=== PATIENT | female | born 1990 | race Caucasian/White ===

== ENCOUNTER 2021-02-17 13:04 | Inpatient (IN) | payer BC ==
[2021-02-17] MEDS ORDERED: Ondansetron 4 MG/2 ML SDV IVPUSH PRN (15:41)
[2021-02-17] MEDS ORDERED: Lactated Ringers 1,000 ML IV SCH (15:45)
[2021-02-17] MEDS ORDERED: Oxytocin/0.9 % Sodium Chloride 30 UNIT/500 ML BAG IV SCH (16:00)
[2021-02-17] MEDS ORDERED: Sodium Chloride 0.9% 10 ML SDV IV PRN (16:16)
[2021-02-17] MEDS ORDERED: Carboprost Tromethamine 250 MCG/1 ML Amp IM PRN (16:16)
[2021-02-17] MEDS ORDERED: Water For Irrigation,Sterile 1,000 ML Container IRR PRN (16:16)
[2021-02-17] MEDS ORDERED: Sodium Chloride 0.9% 2.5 ML Syringe FLUSH PRN (16:16)
[2021-02-17] MEDS ORDERED: Sodium Chloride 0.9% 10 ML Syringe FLUSH PRN (16:16)
[2021-02-17] MEDS ORDERED: Lidocaine 1% 50 ML MDV INJECT PRN (16:16)
[2021-02-17] MEDS ORDERED: Tranexamic Acid 1,000 MG in Sodium Chloride 0.9% 100 ML IV PRN (16:16)
[2021-02-17] MEDS ORDERED: Nalbuphine 10 MG/1 ML Vial IVPUSH PRN (16:16)
[2021-02-17] MEDS ORDERED: Misoprostol 200 MCG Tab PO PRN (16:16)
[2021-02-17] MEDS ORDERED: Butorphanol 1 MG/ML SDV IVPUSH PRN (16:16)
[2021-02-17] MEDS ORDERED: Methylergonovine 0.2 MG/1 ML Amp IM PRN (16:16)
[2021-02-17] MEDS ORDERED: Oxytocin 10 Units/1 ML SDV ONE (19:55)
[2021-02-17] MEDS ORDERED: Docusate Sodium 100 MG Cap PO PRN (20:27)
[2021-02-17] MEDS ORDERED: Ibuprofen 800 MG Tab PO PRN (20:27)
[2021-02-17] MEDS ORDERED: Acetaminophen 500 MG Tab PO PRN ×2 (20:27)
[2021-02-17] MEDS ORDERED: Ibuprofen 400 MG Tab PO PRN (20:27)
[2021-02-17] MEDS ORDERED: oxyCODONE 5 MG Tab PO PRN (20:27)
[2021-02-17] MEDS ORDERED: Witch Hazel Medicated Pads 40/Jar TOP PRN (20:27)
[2021-02-17] MEDS ORDERED: Lanolin 100% Cream 7 GM Tube TOP PRN (20:27)
[2021-02-17] MEDS ORDERED: Benzocaine/Menthol 20%-0.5% Spray 78 GM Cannister TOP PRN (20:27)
[2021-02-17] MEDS ORDERED: Bisacodyl 10 MG Supp RECTAL PRN (20:27)
--- NOTE | 2021-02-17 20:37 | PCM.DEL ---
L & D Note - General Info Date of Service: 02/17/21 Mother's Due Date: 02/12/21 - Delivery Note Labor: Augmented by Oxytocin Cervical Ripening Method: Oxytocin Delivery Outcome: Livebirth Delivery Method: Spontaneous Vaginal Delivery-Single Presentation: Right Occiput Anterior (NAYELI) Nuchal Cord: Present (x1, tight and delivered through) Anesthesia Type: None Amniotic Fluid Description: Clear Episiotomy Type: None Laceration: None Placenta: Intact, Spontaneous Cord: 3 Vessels Estimated Blood Loss: 150 Resuscitation Needed: No : Bulb Syringe, Stimulated Score 1 min: 8 Score 5 min: 9 Delivery Comments (Free Text/Narrative):: Dictation number [id number] - General Info Date of Service: 02/17/21 - Patient Data Weight - Most Recent: 168 lb Lab Results Last 24 Hours: Laboratory Results - last 24 hr 02/17/21 02/17/21 02/17/21 Range/Units 15:00 16:25 16:40 WBC 8.81 (4.0-11.0) K/uL RBC 4.28 L (4.30-5.90) M/uL Hgb 11.9 L (12.0-16.0) g/dL Hct 36.0 (36.0-46.0) % MCV 84.1 (80.0-98.0) fL MCH 27.8 (27.0-32.0) pg MCHC 33.1 (31.0-37.0) g/dL RDW Std Deviation 40.5 (28.0-62.0) fl RDW Coeff of Keo 14 (11.0-15.0) % Plt Count 168 (150-400) K/uL MPV 12.10 H (7.40-12.00) fL Nucleated RBC % 0.0 /100WBC Nucleated RBCs # 0 K/uL Urine Color YELLOW Urine Appearance CLEAR Urine pH 6.0 (5.0-8.0) Ur Specific [place] 1.015 (1.001-1.035) Urine Protein NEGATIVE (NEGATIVE) mg/dL Urine Glucose (UA) NEGATIVE (NEGATIVE) mg/dL Urine Ketones 15 H (NEGATIVE) mg/dL Urine Occult Blood NEGATIVE (NEGATIVE) Urine Nitrite NEGATIVE (NEGATIVE) Urine Bilirubin NEGATIVE (NEGATIVE) Urine Urobilinogen 0.2 (<2.0) EU/dL Ur Leukocyte Esterase TRACE H (NEGATIVE) Urine RBC 0-1 (0-2/HPF) Urine WBC 0-2 (0-5/HPF) Ur Epithelial Cells FEW (NONE-FEW) Urine Bacteria FEW (NEGATIVE) SARS-CoV-2 RNA (JENNIFER) (NEGATIVE) Blood Type A POSITIVE Antibody Screen NEGATIVE 02/17/21 Range/Units 16:50 WBC (4.0-11.0) K/uL RBC (4.30-5.90) M/uL Hgb (12.0-16.0) g/dL Hct (36.0-46.0) % MCV (80.0-98.0) fL MCH (27.0-32.0) pg MCHC (31.0-37.0) g/dL RDW Std Deviation (28.0-62.0) fl RDW Coeff of Keo (11.0-15.0) % Plt Count (150-400) K/uL MPV (7.40-12.00) fL Nucleated RBC % /100WBC Nucleated RBCs # K/uL Urine Color Urine Appearance Urine pH (5.0-8.0) Ur Specific [place] (1.001-1.035) Urine Protein (NEGATIVE) mg/dL Urine Glucose (UA) (NEGATIVE) mg/dL Urine Ketones (NEGATIVE) mg/dL Urine Occult Blood (NEGATIVE) Urine Nitrite (NEGATIVE) Urine Bilirubin (NEGATIVE) Urine Urobilinogen (<2.0) EU/dL Ur Leukocyte Esterase (NEGATIVE) Urine RBC (0-2/HPF) Urine WBC (0-5/HPF) Ur Epithelial Cells (NONE-FEW) Urine Bacteria (NEGATIVE) SARS-CoV-2 RNA (JENNIFER) NEGATIVE (NEGATIVE) Blood Type Antibody Screen Med Orders - Current: Current Medications Acetaminophen (Acetaminophen 500 Mg Tab) 500 mg PO Q4H PRN PRN Reason: Pain Acetaminophen (Acetaminophen 500 Mg Tab) 1,000 mg PO Q4H PRN PRN Reason: Pain Benzocaine/Menthol (Benzocaine/Menthol 20%-0.5% [place] 78 Gm Cannister) 78 gm TOP ASDIRECTED PRN PRN Reason: Perineal Comfort Measure Bisacodyl (Bisacodyl 10 Mg Supp) 10 mg RECTAL ONETIME PRN PRN Reason: Constipation Butorphanol Tartrate (Butorphanol 1 Mg/Ml Sdv) 1 mg IVPUSH Q1H PRN PRN Reason: Pain Carboprost Tromethamine (Carboprost Tromethamine 250 Mcg/1 Ml Amp) 250 mcg IM ASDIRECTED PRN PRN Reason: Post Hemorrhage Docusate Sodium (Docusate Sodium 100 Mg Cap) 100 mg PO BID PRN PRN Reason: Constipation Emollient Ointment (Lanolin 100% Cream 7 Gm Tube) 0 gm TOP ASDIRECTED PRN PRN Reason: Sore Nipples Lactated Ringer's (Ringers, Lactated) 1,000 mls @ 150 mls/hr IV ASDIRECTED [facility] Last Admin: 02/17/21 17:24 Dose: 150 mls/hr Documented by: Oxytocin/Sodium Chloride (Oxytocin 30 Unit/500 Ml-Ns) 30 unit in 500 mls @ 2 mls/hr IV TITRATE [facility]; Protocol Last Admin: 02/17/21 17:24 Dose: 2 munits/min, 2 mls/hr Documented by: Tranexamic Acid 1,000 mg/ (Sodium Chloride) 110 mls @ 660 mls/hr IV ONETIME PRN PRN Reason: Bleeding Ibuprofen (Ibuprofen 400 Mg Tab) 400 mg PO Q4H PRN PRN Reason: Pain Ibuprofen (Ibuprofen 800 Mg Tab) 800 mg PO Q6H PRN PRN Reason: Pain Lidocaine HCl (Lidocaine 1% 50 Ml Mdv) 50 ml INJECT ONETIME PRN PRN Reason: Laceration repair Methylergonovine Maleate (Methylergonovine 0.2 Mg/1 Ml Amp) 0.2 mg IM ASDIRECTED PRN PRN Reason: Post Hemorrhage Misoprostol (Misoprostol 200 Mcg Tab) 200 mcg PO ONETIME PRN PRN Reason: Post Hemorrhage Nalbuphine HCl (Nalbuphine 10 Mg/1 Ml Vial) 10 mg IVPUSH Q1H PRN PRN Reason: Pain (severe 7-10) Ondansetron HCl (Ondansetron 4 Mg/2 Ml Sdv) 4 mg IVPUSH Q4H PRN PRN Reason: Nausea/Vomiting Oxycodone HCl (Oxycodone 5 Mg Tab) 5 mg PO Q2H PRN PRN Reason: Pain Sodium Chloride (Sodium Chloride 0.9% 10 Ml Syringe) 10 ml FLUSH ASDIRECTED PRN PRN Reason: Keep Vein Open Sodium Chloride (Sodium Chloride 0.9% 2.5 Ml Syringe) 2.5 ml FLUSH ASDIRECTED PRN PRN Reason: Keep Vein Open Sodium Chloride (Sodium Chloride 0.9% 10 Ml Sdv) 10 ml IV ASDIRECTED PRN PRN Reason: IV Use Sterile Water (Water For Irrigation,Sterile 1,000 Ml Container) 1,000 ml IRR ASDIRECTED PRN PRN Reason: delivery Witch Pam (Witch Pam Medicated Pads 40/Jar) 1 pad TOP ASDIRECTED PRN PRN Reason: comfort care - Problem List Review Problem List Initiated/Reviewed/Updated: Yes - My Orders Last 24 Hours: My Active Orders 02/17/21 20:27 Patient Status [ADT] Routine May Shower [RC] ASDIRECTED Up ad [place] [RC] ASDIRECTED Vital Signs [RC] PER UNIT ROUTINE Acetaminophen [Tylenol Extra Strength] 1,000 mg PO Q4H PRN Acetaminophen [Tylenol Extra Strength] 500 mg PO Q4H PRN Benzocaine/Menthol [Dermoplast Pain Relief 20%-0.5% [place]] 78 gm TOP ASDIRECTED PRN Docusate Sodium [Colace] 100 mg PO BID PRN Ibuprofen [Motrin] 400 mg PO Q4H PRN Ibuprofen [Motrin] 800 mg PO Q6H PRN Lanolin [Lansinoh HPA] See Dose Instructions TOP ASDIRECTED PRN bisacodyL [Dulcolax] 10 mg RECTAL ONETIME PRN oxyCODONE 5 mg PO Q2H PRN witch Pam [Tucks] 1 pad TOP ASDIRECTED PRN Assess Lochia [WOMSER] Per Unit Routine Assess Uterine Involution [WOMSER] Per Unit Routine Peripheral IV Discontinue [OM.PC] Routine 02/18/21 05:11 HEMOGLOBIN/HEMATOCRIT,HH [HEME] Timed - Assessment Assessment:: 30 year old G4 now P4 s/p spontaneous vaginal delivery - Plan Plan:: Routine cares * Rh positive, rubella immune, GBS negative * Encourage ambulation and fluid intake * PO pain medication available PRN * Regular diet as tolerated * , nursing assistance as indicated Classic Hodgkins lymphoma * Recent diagnosis, oncology appointment next week Dispo: stable. Admit patient and infant to room.
--- NOTE | 2021-02-18 03:08 | OR ---
SURGEON: CHERYL BENNETT MD DATE OF PROCEDURE: 02/17/2021 PREOPERATIVE DIAGNOSES: 1. [place] intrauterine at 40 weeks and 1 day. 2. Classic Hodgkin lymphoma. POSTOPERATIVE DIAGNOSES: 1. [place] intrauterine at 40 weeks and 1 day. 2. Classic Hodgkin lymphoma. PROCEDURE PERFORMED: Normal spontaneous vaginal delivery. PRIMARY SURGEON: Cheryl Bennett MD FINDINGS: Normal-appearing viable female infant. score of 8 and 9. weight of 8 pounds 11 ounces. ESTIMATED BLOOD LOSS: 150. INDICATION FOR PROCEDURE: The patient is a 30-year-old, 4, para 3, at 40 weeks and 5 days who presented to Labor and Delivery with irregular contractions in the afternoon of 02/17/2021. Due to post-dates and living remote from facility, labor was augmented with Pitocin. Labor progressed uneventfully. At approximately 7:50, I was notified that the patient was 8 cm dilated and felt the urge to push. DESCRIPTION OF THE PROCEDURE: Upon my arrival to the patient's room, she was noted to be 9 cm dilated and amniotic sac was intact. After review of risks, artificial rupture of membranes with me was performed and moderate amount of clear fluid was noted. Shortly thereafter, the patient initiated pushing efforts and head delivered in occiput anterior position, restituted in ROT, tight nuchal cord was noted, and delivery continued. Anterior shoulder delivered easily, followed by the posterior shoulder and remainder of the body. The baby was then placed on maternal chest and evaluated by the awaiting nursing staff. The umbilical cord was then clamped and cut after 60 seconds and no longer pulsating. Arterial, venous, and cord blood gases were then obtained. The placenta then delivered spontaneously shortly thereafter, intact. The vagina and perineum were then examined, and no lacerations were noted. Hemostasis was confirmed. Uterine fundus was firm and located below the umbilicus upon fundal massage. She tolerated the procedure well and was given care instructions. JACQUELYN / EDUAR /[id number]
--- NOTE | 2021-02-18 08:49 | PCM.PNPP ---
- General Info Date of Service: 02/18/21 Subjective Update: Resting in bed with during rounds. Ambulating and voiding without difficulty. Pain well controlled with PO medications. Tolerating regular diet. Lochia decreasing. Breast feeding going well. - General Info Date of Service: 02/18/21 - Patient Data Vital Signs - Most Recent: Last Vital Signs Temp 97.9 F 02/18/21 04:58 Pulse 72 02/18/21 04:58 Resp 16 02/18/21 00:00 BP 96/58 L 02/18/21 04:58 Pulse Ox Weight - Most Recent: 168 lb Lab Results - Last 24 Hours: Laboratory Results - last 24 hr 02/17/21 02/17/21 02/17/21 Range/Units 15:00 16:25 16:40 WBC 8.81 (4.0-11.0) K/uL RBC 4.28 L (4.30-5.90) M/uL Hgb 11.9 L (12.0-16.0) g/dL Hct 36.0 (36.0-46.0) % MCV 84.1 (80.0-98.0) fL MCH 27.8 (27.0-32.0) pg MCHC 33.1 (31.0-37.0) g/dL RDW Std Deviation 40.5 (28.0-62.0) fl RDW Coeff of Keo 14 (11.0-15.0) % Plt Count 168 (150-400) K/uL MPV 12.10 H (7.40-12.00) fL Nucleated RBC % 0.0 /100WBC Nucleated RBCs # 0 K/uL Cord ABG pH (7.18-7.38) Cord ABG Base Excess (-10--2) Cord VBG pH (7.25-7.45) Cord VBG Base Excess (-10--2) Urine Color YELLOW Urine Appearance CLEAR Urine pH 6.0 (5.0-8.0) Ur Specific [place] 1.015 (1.001-1.035) Urine Protein NEGATIVE (NEGATIVE) mg/dL Urine Glucose (UA) NEGATIVE (NEGATIVE) mg/dL Urine Ketones 15 H (NEGATIVE) mg/dL Urine Occult Blood NEGATIVE (NEGATIVE) Urine Nitrite NEGATIVE (NEGATIVE) Urine Bilirubin NEGATIVE (NEGATIVE) Urine Urobilinogen 0.2 (<2.0) EU/dL Ur Leukocyte Esterase TRACE H (NEGATIVE) Urine RBC 0-1 (0-2/HPF) Urine WBC 0-2 (0-5/HPF) Ur Epithelial Cells FEW (NONE-FEW) Urine Bacteria FEW (NEGATIVE) SARS-CoV-2 RNA (JENNIFER) (NEGATIVE) Blood Type A POSITIVE Antibody Screen NEGATIVE 02/17/21 02/17/21 02/18/21 Range/Units 16:50 20:10 06:15 WBC (4.0-11.0) K/uL RBC (4.30-5.90) M/uL Hgb 12.0 (12.0-16.0) g/dL Hct 36.5 (36.0-46.0) % MCV (80.0-98.0) fL MCH (27.0-32.0) pg MCHC (31.0-37.0) g/dL RDW Std Deviation (28.0-62.0) fl RDW Coeff of Keo (11.0-15.0) % Plt Count (150-400) K/uL MPV (7.40-12.00) fL Nucleated RBC % /100WBC Nucleated RBCs # K/uL Cord ABG pH 7.322 (7.18-7.38) Cord ABG Base Excess -6 (-10--2) Cord VBG pH 7.341 (7.25-7.45) Cord VBG Base Excess -5 (-10--2) Urine Color Urine Appearance Urine pH (5.0-8.0) Ur Specific [place] (1.001-1.035) Urine Protein (NEGATIVE) mg/dL Urine Glucose (UA) (NEGATIVE) mg/dL Urine Ketones (NEGATIVE) mg/dL Urine Occult Blood (NEGATIVE) Urine Nitrite (NEGATIVE) Urine Bilirubin (NEGATIVE) Urine Urobilinogen (<2.0) EU/dL Ur Leukocyte Esterase (NEGATIVE) Urine RBC (0-2/HPF) Urine WBC (0-5/HPF) Ur Epithelial Cells (NONE-FEW) Urine Bacteria (NEGATIVE) SARS-CoV-2 RNA (JENNIFER) NEGATIVE (NEGATIVE) Blood Type Antibody Screen Med Orders - Current: Current Medications Acetaminophen (Acetaminophen 500 Mg Tab) 500 mg PO Q4H PRN PRN Reason: Pain Acetaminophen (Acetaminophen 500 Mg Tab) 1,000 mg PO Q4H PRN PRN Reason: Pain Benzocaine/Menthol (Benzocaine/Menthol 20%-0.5% [place] 78 Gm Cannister) 78 gm TOP ASDIRECTED PRN PRN Reason: Perineal Comfort Measure Bisacodyl (Bisacodyl 10 Mg Supp) 10 mg RECTAL ONETIME PRN PRN Reason: Constipation Butorphanol Tartrate (Butorphanol 1 Mg/Ml Sdv) 1 mg IVPUSH Q1H PRN PRN Reason: Pain Carboprost Tromethamine (Carboprost Tromethamine 250 Mcg/1 Ml Amp) 250 mcg IM ASDIRECTED PRN PRN Reason: Post Hemorrhage Docusate Sodium (Docusate Sodium 100 Mg Cap) 100 mg PO BID PRN PRN Reason: Constipation Emollient Ointment (Lanolin 100% Cream 7 Gm Tube) 0 gm TOP ASDIRECTED PRN PRN Reason: Sore Nipples Lactated Ringer's (Ringers, Lactated) 1,000 mls @ 150 mls/hr IV ASDIRECTED COUNT [facility]CLUDES [facility] Last Admin: 02/17/21 17:24 Dose: 150 mls/hr Documented by: Oxytocin/Sodium Chloride (Oxytocin 30 Unit/500 Ml-Ns) 30 unit in 500 mls @ 2 mls/hr IV TITRATE COUNT INCLUDES [facility]; Protocol Last Admin: 02/17/21 17:24 Dose: 2 munits/min, 2 mls/hr Documented by: Tranexamic Acid 1,000 mg/ (Sodium Chloride) 110 mls @ 660 mls/hr IV ONETIME PRN PRN Reason: Bleeding Ibuprofen (Ibuprofen 400 Mg Tab) 400 mg PO Q4H PRN PRN Reason: Pain Ibuprofen (Ibuprofen 800 Mg Tab) 800 mg PO Q6H PRN PRN Reason: Pain Lidocaine HCl (Lidocaine 1% 50 Ml Mdv) 50 ml INJECT ONETIME PRN PRN Reason: Laceration repair Methylergonovine Maleate (Methylergonovine 0.2 Mg/1 Ml Amp) 0.2 mg IM ASDIRECTED PRN PRN Reason: Post Hemorrhage Misoprostol (Misoprostol 200 Mcg Tab) 200 mcg PO ONETIME PRN PRN Reason: Post Hemorrhage Nalbuphine HCl (Nalbuphine 10 Mg/1 Ml Vial) 10 mg IVPUSH Q1H PRN PRN Reason: Pain (severe 7-10) Ondansetron HCl (Ondansetron 4 Mg/2 Ml Sdv) 4 mg IVPUSH Q4H PRN PRN Reason: Nausea/Vomiting Oxycodone HCl (Oxycodone 5 Mg Tab) 5 mg PO Q2H PRN PRN Reason: Pain Sodium Chloride (Sodium Chloride 0.9% 10 Ml Syringe) 10 ml FLUSH ASDIRECTED PRN PRN Reason: Keep Vein Open Sodium Chloride (Sodium Chloride 0.9% 2.5 Ml Syringe) 2.5 ml FLUSH ASDIRECTED PRN PRN Reason: Keep Vein Open Sodium Chloride (Sodium Chloride 0.9% 10 Ml Sdv) 10 ml IV ASDIRECTED PRN PRN Reason: IV Use Sterile Water (Water For Irrigation,Sterile 1,000 Ml Container) 1,000 ml IRR ASDIRECTED PRN PRN Reason: delivery Witch Pam (Witch Pam Medicated Pads 40/Jar) 1 pad TOP ASDIRECTED PRN PRN Reason: comfort care Discontinued Medications Oxytocin (Oxytocin 10 Units/1 Ml Sdv) Confirm Administered Dose 10 unit .ROUTE .[employer]-AMKAI ONE Stop: 02/17/21 19:56 - Infant Interaction Disposition, : [place] in Room with Family Interaction: Holding Infant Feeding: Breastfed ; Nursed Well Support Person: - Recovery Exam Fundal Tone: Firm Fundal Level: 1 Fingerbreadths Below Umbilicus Fundal Placement: Midline Lochia Amount: Scant Lochia Color: Rubra/Red Perineum Description: Intact, Minimal Bruising/Swelling Episiotomy/Laceration: None Bladder Status: Voiding Urinary Elimination: Voided - Exam General: Alert Lungs: Normal Respiratory Effort Cardiovascular: Regular Rate GI/Abdominal Exam: Soft, Non-Tender Extremities: Normal Inspection, Normal Range of Motion, Non-Tender, No Pedal Edema Skin: Warm, Dry, Intact Neurological: No New Focal Deficit Psy/Mental Status: Normal Mood - Problem List Review Problem List Initiated/Reviewed/Updated: Yes - My Orders Last 24 Hours: My Active Orders 02/17/21 20:27 Patient Status [ADT] Routine May Shower [RC] ASDIRECTED Up ad [place] [RC] ASDIRECTED Vital Signs [RC] PER UNIT ROUTINE Acetaminophen [Tylenol Extra Strength] 1,000 mg PO Q4H PRN Acetaminophen [Tylenol Extra Strength] 500 mg PO Q4H PRN Benzocaine/Menthol [Dermoplast Pain Relief 20%-0.5% [place]] 78 gm TOP ASDIRECTED PRN Docusate Sodium [Colace] 100 mg PO BID PRN Ibuprofen [Motrin] 400 mg PO Q4H PRN Ibuprofen [Motrin] 800 mg PO Q6H PRN Lanolin [Lansinoh HPA] See Dose Instructions TOP ASDIRECTED PRN bisacodyL [Dulcolax] 10 mg RECTAL ONETIME PRN oxyCODONE 5 mg PO Q2H PRN witch Pam [Tucks] 1 pad TOP ASDIRECTED PRN Assess Lochia [WOMSER] Per Unit Routine Assess Uterine Involution [WOMSER] Per Unit Routine Peripheral IV Discontinue [OM.PC] Routine 02/18/21 Breakfast Regular Diet [DIET] - Assessment Assessment:: 30 year old G4 now P4 PPD1 s/p spontaneous vaginal delivery - Plan Plan:: Routine cares * Rh positive, rubella immune, GBS negative * Encourage ambulation and fluid intake * PO pain medication available PRN * Regular diet as tolerated * , nursing assistance as indicated Classic Hodgkins lymphoma * Recent diagnosis, oncology appointment next week Dispo: stable. Anticipate discharge tomorrow pending maternal/infant status. Continue cares today.
--- NOTE | 2021-02-19 08:05 | PCM.PNPP ---
- General Info Date of Service: 02/19/21 Subjective Update: Eating breakfast in bed during rounds. Ambulating and voiding without difficulty. Pain well controlled with PO medications. Tolerating regular diet. Lochia decreasing. Breast feeding going well. - General Info Date of Service: 02/19/21 - Patient Data Vital Signs - Most Recent: Last Vital Signs Temp 97.0 F 02/19/21 06:16 Pulse 68 02/19/21 06:16 Resp 18 02/19/21 06:16 BP 93/61 02/19/21 06:16 Pulse Ox 98 02/19/21 06:16 Weight - Most Recent: 168 lb Med Orders - Current: Current Medications Acetaminophen (Acetaminophen 500 Mg Tab) 500 mg PO Q4H PRN PRN Reason: Pain Acetaminophen (Acetaminophen 500 Mg Tab) 1,000 mg PO Q4H PRN PRN Reason: Pain Benzocaine/Menthol (Benzocaine/Menthol 20%-0.5% [place] 78 Gm Cannister) 78 gm TOP ASDIRECTED PRN PRN Reason: Perineal Comfort Measure Bisacodyl (Bisacodyl 10 Mg Supp) 10 mg RECTAL ONETIME PRN PRN Reason: Constipation Butorphanol Tartrate (Butorphanol 1 Mg/Ml Sdv) 1 mg IVPUSH Q1H PRN PRN Reason: Pain Carboprost Tromethamine (Carboprost Tromethamine 250 Mcg/1 Ml Amp) 250 mcg IM ASDIRECTED PRN PRN Reason: Post Hemorrhage Docusate Sodium (Docusate Sodium 100 Mg Cap) 100 mg PO BID PRN PRN Reason: Constipation Emollient Ointment (Lanolin 100% Cream 7 Gm Tube) 0 gm TOP ASDIRECTED PRN PRN Reason: Sore Nipples Lactated Ringer's (Ringers, Lactated) 1,000 mls @ 150 mls/hr IV ASDIRECTED [facility] Last Admin: 02/17/21 17:24 Dose: 150 mls/hr Documented by: Oxytocin/Sodium Chloride (Oxytocin 30 Unit/500 Ml-Ns) 30 unit in 500 mls @ 2 m ls/hr IV TITRATE [facility]; Protocol Last Admin: 02/17/21 17:24 Dose: 2 munits/min, 2 mls/hr Documented by: Tranexamic Acid 1,000 mg/ (Sodium Chloride) 110 mls @ 660 mls/hr IV ONETIME PRN PRN Reason: Bleeding Ibuprofen (Ibuprofen 400 Mg Tab) 400 mg PO Q4H PRN PRN Reason: Pain Ibuprofen (Ibuprofen 800 Mg Tab) 800 mg PO Q6H PRN PRN Reason: Pain Lidocaine HCl (Lidocaine 1% 50 Ml Mdv) 50 ml INJECT ONETIME PRN PRN Reason: Laceration repair Methylergonovine Maleate (Methylergonovine 0.2 Mg/1 Ml Amp) 0.2 mg IM ASDIRECTED PRN PRN Reason: Post Hemorrhage Misoprostol (Misoprostol 200 Mcg Tab) 200 mcg PO ONETIME PRN PRN Reason: Post Hemorrhage Nalbuphine HCl (Nalbuphine 10 Mg/1 Ml Vial) 10 mg IVPUSH Q1H PRN PRN Reason: Pain (severe 7-10) Ondansetron HCl (Ondansetron 4 Mg/2 Ml Sdv) 4 mg IVPUSH Q4H PRN PRN Reason: Nausea/Vomiting Oxycodone HCl (Oxycodone 5 Mg Tab) 5 mg PO Q2H PRN PRN Reason: Pain Sodium Chloride (Sodium Chloride 0.9% 10 Ml Syringe) 10 ml FLUSH ASDIRECTED PRN PRN Reason: Keep Vein Open Sodium Chloride (Sodium Chloride 0.9% 2.5 Ml Syringe) 2.5 ml FLUSH ASDIRECTED PRN PRN Reason: Keep Vein Open Sodium Chloride (Sodium Chloride 0.9% 10 Ml Sdv) 10 ml IV ASDIRECTED PRN PRN Reason: IV Use Sterile Water (Water For Irrigation,Sterile 1,000 Ml Container) 1,000 ml IRR ASDIRECTED PRN PRN Reason: delivery Witch Pam (Witch Pam Medicated Pads 40/Jar) 1 pad TOP ASDIRECTED PRN PRN Reason: comfort care Discontinued Medications Oxytocin (Oxytocin 10 Units/1 Ml Sdv) Confirm Administered Dose 10 unit .ROUTE .STK-MED ONE Stop: 02/17/21 19:56 Last Admin: 02/18/21 11:22 Dose: Not Given Documented by: - Interaction Disposition, : [place] at Bedside Infant Feeding: Breastfed Infant; Nursed Well Support Person: - Recovery Exam Fundal Tone: Firm Fundal Level: 1 Fingerbreadths Below Umbilicus Fundal Placement: Midline Lochia Amount: Scant Lochia Color: Rubra/Red Perineum Description: Intact, Minimal Bruising/Swelling Episiotomy/Laceration: None Bladder Status: Voiding Urinary Elimination: Voided - Exam General: Alert Lungs: Normal Respiratory Effort Cardiovascular: Regular Rate GI/Abdominal Exam: Soft, Non-Tender Extremities: Normal Range of Motion, Non-Tender, No Pedal Edema Skin: Warm, Dry, Intact Neurological: No New Focal Deficit Psy/Mental Status: Normal Mood - Problem List Review Problem List Initiated/Reviewed/Updated: Yes - Assessment Assessment:: 30 year old G4 now P4 PPD2 s/p spontaneous vaginal delivery - Plan Plan:: Routine cares * Rh positive, rubella immune, GBS negative * Encourage ambulation and fluid intake * PO pain medication available PRN * Regular diet as tolerated * , nursing assistance as indicated Classic Hodgkins lymphoma * Recent diagnosis, oncology appointment next week Dispo: stable. Anticipate discharge today pending maternal/infant status. Reviewed discharge instructions with patient and significant other. Patient to follow up at [facility] in 4 weeks for visit.
== END 2021-02-19 13:18 | disposition home or self-care (01) | DRG 560 ==
LOC: MW.OBCHECK 13:04 → MW.OB 15:54 → OBSVTOIN 20:10 → MW.OB 22:45
PROVIDERS: ADMIT Obstetrics & Gynecology; ATTEND Obstetrics & Gynecology
PROC: 10E0XZZ Delivery of Products of Conception, External Approach (ICD-10-PCS; principal; 2021-02-17)
PROC: 10907ZC Drainage of Amniotic Fluid, Therapeutic from Products of Conception, Via Natural or Artificial Opening (ICD-10-PCS; 2021-02-17)
DX: O48.0 Post-term pregnancy (principal); O9A.12 Malignant neoplasm complicating childbirth; Z3A.40 40 weeks gestation of pregnancy; Z37.0 Single live birth; O69.1XX0 Labor and delivery complicated by cord around neck, with compression, not applicable or unspecified; C81.90 Hodgkin lymphoma, unspecified, unspecified site; Z20.822 Contact with and (suspected) exposure to COVID-19
CPT/HCPCS: 36415; 59025; 59409; 81001; 82803; 85014; 85018; 85027; 86592; 86850; 86900; 86901; J2001; J2590; J7120; U0002

== ENCOUNTER 2022-03-13 06:13 | Day surgery (SDC) | payer BC ==
[~2022-03-13 06:13] MED LIST: Lactated Ringers 1,000 ML IV SCH; Sodium Chloride 0.9% 10 ML Syringe FLUSH PRN; Sodium Chloride 0.9% 2.5 ML Syringe FLUSH PRN; Sodium Chloride 0.9% 20 ML SDV IV PRN
[2022-03-13] MEDS ORDERED: Lidocaine 1% 20 ML MDV ONE (06:54)
[2022-03-13] MEDS ORDERED: Bupivacaine 0.5% 30 ML SDV ONE (06:54)
[2022-03-13] MEDS ORDERED: Octyl 2-Cyanoacrylate 1 Tube ONE (06:55)
[2022-03-13] MEDS ORDERED: ceFAZolin 1 GM in Premix Bag 1 BAG IV ONE (12:17)
== END 2022-03-13 08:37 | disposition home or self-care (01) ==
LOC: MW.SDS 06:13
PROVIDERS: ATTEND Surgery
DX: C81.71 Other Hodgkin lymphoma, lymph nodes of head, face, and neck (principal)
CPT/HCPCS: 38510; A9270; J3490; J7120